=== PATIENT | female | born 1990 | race Hispanic/Latino ===

== ENCOUNTER 2016-09-11 14:26 | Emergency (ER) | payer OTHER ==
[~2016-09-11] VITALS: Ht 154.9 cm; Wt 90.7 kg
--- NOTE | 2016-09-11 17:37 | ED GI/GU/ABDOMINAL COMPLAINT ---
History of Present Illness General Chief Complaint: Abdominal Pain/Flank Pain Stated Complaint: LOWER ABD PAIN Source: patient, family, old records Exam Limitations: no limitations Vital Signs & Intake/Output Vital Signs & Intake/Output Vital Signs Date Time Temp Pulse Resp B/P B/P Pulse O2 O2 Flow FiO2 Mean Ox Delivery Rate 09/11 1650 Room Air 09/11 1445 97.9 96 20 120/83 98 Room Air Room Air Allergies Coded Allergies: No Known Allergies (09/11/16) Reconcile Medications No Known Home Medications Triage Note: PT TO ED WITH C/O LEFT MID-LOWER ABD PAIN RADIATING TO LEFT FLANK SINCE SATURDAY. +NAUSEA, NO APPETITE. DENIES URINARY DIFF. LAST MENSES: 08/24 Triage Nurses Notes Reviewed? yes LMP (ages 10-50): unknown ? n Is pt currently ? No Onset: 4 days Duration: day(s):, constant, continues in ED, getting worse Timing: recent history Quality/Severity: aching, cramping, severe, vomiting Location: epigastric, left flank Radiation: flank Activities at Onset: rest Prior Abdominal Problems: none Past Sexual History: Unobtainable at this time Modifying Factors: Worsens With: eating. Associated Symptoms: abdominal pain, loss of appetite, nausea/vomiting HPI: 4 days prior to admission patient complains of left upper quadrant /flank pain described as severe sharp constant worse with eating waking associated with nausea vomiting anorexia. No relief with antacids. She denies fever chills chest pain cough shortness breath headache dysuria rash bleeding . Past History Travel History Traveled to [place] past 21 day No Medical History Any Pertinent Medical History? 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 No Review of Systems Review of Systems Constitutional: Reports: see HPI, malaise. EENTM: Reports: no symptoms. Respiratory: Reports: no symptoms. Cardiovascular: Reports: no symptoms. GI: Reports: see HPI, abdominal pain, nausea, vomiting. Genitourinary: Reports: no symptoms. Musculoskeletal: Reports: no symptoms. Skin: Reports: no symptoms. Neurological/Psychological: Reports: no symptoms. Hematologic/Endocrine: Reports: no symptoms. Immunologic/Allergic: Reports: no symptoms. All Other Systems: Reviewed and Negative Physical Exam Physical Exam General Appearance: well developed/nourished, alert, awake, anxious, severe distress, obese Head: atraumatic, normal appearance Eyes: Bilateral: normal appearance, PERRL, EOMI, normal inspection. Ears, Nose, Throat, Mouth: hearing grossly normal, dry mucous membranes Neck: normal inspection, supple, full range of motion, normal alignment, no midline tenderness Respiratory: normal breath sounds, chest non-tender, no respiratory distress, quiet respiration, lungs clear Cardiovascular: regular rate/rhythm, normal peripheral pulses, norml femoral pulses equa Peripheral Pulses: 4+ carotid (R), 4+ carotid (L) Gastrointestinal: soft, no organomegaly, abnormal bowel sounds, tenderness (mild left upper quadrant) Back: normal inspection, normal range of motion Extremities: normal range of motion, no ligament instability Neurologic/Psych: no motor/sensory deficits, awake, alert, oriented x 3, normal gait, normal mood/affect, vp mobile products II-XII nml as tested Skin: intact, normal color, warm/dry Core Measures ACS in differential dx? No Severe Sepsis Present: No Septic Shock Present: No Progress Differential Diagnosis: gastritis, PUD/GERD, UTI/pyelo Plan of Care: Orders Procedure Date/time Status LIPASE 09/11 172 Complete COMPREHENSIVE METABOLIC PANEL 09/11 1722 Complete CBC WITHOUT DIFFERENTIAL 09/11 172 Complete URINE 09/11 1448 Complete URINALYSIS 09/11 1448 Complete Current Medications Sig/Becca Start time Last Medication Dose Stop Time Status Admin Diphenhydramine HCl 25 MG ONCE ONE 09/11 1815 UNVr 09/11 (Benadryl) 09/11 181 1819 Acetaminophen 1,000 MG ONCE ONE 09/11 1730 UNVr 09/11 (Ofirmev) 09/11 1731 1745 Famotidine 20 MG ONCE ONE 09/11 173 UNVr 09/11 (Pepcid) 09/11 1731 1745 Metoclopramide HCl 10 MG ONCE ONE 09/11 173 UNVr 09/11 (Reglan) 09/11 1731 1745 Sodium Chloride 1,000 ML BOLUS ONE 09/11 173 UNVr 09/11 (Normal Saline 0.9%) 09/11 1829 1745 Laboratory Tests 09/11/16 1735: Anion Gap 11, Estimated GFR > 60, BUN/Creatinine Ratio 22.9, Glucose 75, Calcium 9.7, Total Bilirubin 0.5, AST 21, ALT 26, Alkaline Phosphatase 82, Total Protein 7.7, Albumin 4.4, Globulin 3.3, Albumin/Globulin Ratio 1.3, Lipase 86, CBC w Diff NO MAN DIFF REQ, RBC 4.82, MCV 90.9, MCH 29.9, RDW 13.9, MPV 8.0, Gran % 73.2, Lymphocytes % 17.8 L, Monocytes % 7.5, Eosinophils % 1.0, Basophils % 0.5 , Absolute Granulocytes 8.2 H, Absolute Lymphocytes 2.0, Absolute Monocytes 0.8 H, Absolute Eosinophils 0.1, Absolute Basophils 0.1, PUBS MCHC 32.9 L 09/11/16 1455: Urine Color YEL, Urine Clarity CLEAR, Urine pH 6.0, Ur Specific [place] 1.020, Urine Protein NEG, Urine Ketones TRACE H, Urine Nitrite NEG, Urine Bilirubin NEG@ICTO, Urine Urobilinogen 0.2, Ur Leukocyte Esterase NEG, Ur Microscopic EXAM NOT REQUIRED, Urine Hemoglobin NEG, Urine Glucose NEG, Urine Test NEGATIVE Initial ED EKG: none Comments: Akathesia after reglan. Benadryl ordered with improvement Departure Departure Time of Disposition: 1850 Disposition: HOME OR SELF CARE Condition: Stable Clinical Impression Primary Impression: Gastritis and duodenitis Secondary Impressions: Acute medication-induced akathisia Referrals: CAESAR DAVIS,LETI Nielsen Call for GI evaluation Departure Forms: Customer Survey General Discharge Information Prescriptions: Current Visit Scripts Hyoscyamine Sulfate (Levsin-Sl) 1-2 TAB SL Q4P PRN abdominal cramps #60 TAB Ondansetron (Zofran Odt) 1 TAB SL TID PRN nausea #10 TAB Pantoprazole Sodium (Protonix) 1 TAB PO DAILY #30 TAB [Magic mouthwash] 5-10 ML PO Q6P PRN abdominal pain #270 ML viscous lido:maalox:benadryl=1:1:1
[2016-09-11 17:43] LABS: ABSOLUTE BASOPHIL COUNT 0.1 /CUMM (0.0-0.2); ABSOLUTE EOSINOPHIL COUNT 0.1 /CUMM (0.0-0.7); ABSOLUTE GRANULOCYTE CT 8.2 /CUMM (1.4-6.5); ABSOLUTE MONOCYTE COUNT 0.8 /CUMM (0.10-0.60); BASOPHIL % 0.5 % (0.0-2.0); GRANULOCYTE % 73.2 % (42.2-75.2); HEMATOCRIT 43.8 % (37-47); MEAN CORPUSCULAR HGB 29.9 PG (27.0-31.0); MEAN CORPUSCULAR HGB CONC 32.9 G/DL (33.0-37.0); MEAN CORPUSCULAR VOLUME 90.9 FL (81.0-99.0); PLATELET COUNT 306 /CUMM (130-400); RBC DISTRIBUTION WIDTH 13.9 % (11.5-14.5); RED BLOOD CELL CT 4.82 /CUMM (4.20-5.40); WHITE BLOOD CELL COUNT 11.3 /CUMM (4.8-10.8)
[2016-09-11] MEDS ORDERED: LEVSIN-SL0.125 MG SL (18:54)
[2016-09-11] MEDS ORDERED: PROTONIX40 M3 PO (18:54)
[2016-09-11] MEDS ORDERED: Magic mouthwash PO (18:54)
[2016-09-11] MEDS ORDERED: ZOFRAN ODT4 M1 SL (18:54)
[2016-09-11 19:03] VITALS: BP 106/66
== END 2016-09-11 19:04 ==
LOC: ERH 14:26
PROVIDERS: Emergency Medicine
DX: K29.70 Gastritis, unspecified, without bleeding (principal); K29.80 Duodenitis without bleeding; G25.71 Drug induced akathisia
CPT/HCPCS: 81001; 81003; 81025; 96361; 96374; 96375; J0131; J1200; J2765